=== PATIENT | male | born 1975 | race Caucasian/White ===

== ENCOUNTER 2021-03-07 18:59 | Emergency (ER) | payer SELFPAY ==
[~2021-03-07] VITALS: Wt 95.3 kg
[~2021-03-07 18:59] MED LIST: 'PARAFON FORTE500 M1 PO; BACTRIM DS 8001 TA1 PO; CIPRO500 MG PO; CYCLOBENZAPRINE10 MG PO; DOXYCYCLINE MO100 MG PO; HYDROCODONE BIT1 T11 PO; IBU800 M1 PO; KENALOG0.1% TP; LISINOPRIL10 MG PO; MEDROL DOSEPAK4 MG PO; NAPROSYN500 MG PO; NKHM; NORCO 325 MG-51 TAB PO; PARAFON FORTE500 MG PO; PERCOCET 325 MG1 TA2 PO; ROBITUSSIN DAC PO; VICODIN ES 7501 TAB PO
== END 2021-03-07 19:35 | disposition home or self-care (01) ==
LOC: ED 18:59
DX: L23.7 Allergic contact dermatitis due to plants, except food (principal); Z88.8 Allergy status to other drugs, medicaments and biological substances; Z79.899 Other long term (current) drug therapy; Z87.891 Personal history of nicotine dependence

== ENCOUNTER 2021-06-23 13:10 | Emergency (ER) | payer MEDICAID ==
[~2021-06-23] VITALS: Ht 185.4 cm; Wt 95.3 kg
== END 2021-06-23 14:55 | disposition home or self-care (01) ==
LOC: ED 13:10
DX: S29.011A Strain of muscle and tendon of front wall of thorax, initial encounter (principal); M25.511 Pain in right shoulder; Z88.8 Allergy status to other drugs, medicaments and biological substances; Z79.899 Other long term (current) drug therapy; X50.0XXA Overexertion from strenuous movement or load, initial encounter; Y93.89 Activity, other specified; Y92.89 Other specified places as the place of occurrence of the external cause; Y99.8 Other external cause status